=== PATIENT | male | born 1980 | race Caucasian/White ===

== ENCOUNTER 2017-09-09 00:38 | Emergency (ER) | payer MEDICAID ==
[~2017-09-09] VITALS: Ht 180.3 cm; Wt 77.3 kg
[2017-09-09 00:47] VITALS: BP 131/78
[2017-09-10] MEDS ORDERED: CLIN150C2 PO (18:34)
[2017-09-10] MEDS ORDERED: HYDR-565 PO (18:36)
== END 2017-09-09 01:47 | disposition left against medical advice (07) ==
LOC: ER 00:40
DX: K13.79 Other lesions of oral mucosa (principal); Z53.21 Procedure and treatment not carried out due to patient leaving prior to being seen by health care provider

== ENCOUNTER 2019-08-01 00:41 | Emergency (ER) | payer MEDICAID, OTHER ==
[~2019-08-01] VITALS: Ht 180.3 cm; Wt 170.0 kg
--- NOTE | 2019-08-01 00:53 | NUR ---
he removed the bandaide when he got to the room and it drained quick liquid moderate amount. He is right, there is a hole and the skin is excoriated around the wound and the whole dorsal part of the hand is swollen and red in color.
--- NOTE | 2019-08-01 01:38 | NUR ---
PATIENT'S HR IS 122 BPM, ADMITS TO METHAMPHETAMINE USE 2 HOURS [employer]
[2019-08-01] MEDS ORDERED: HYDROcodone/acetaminophen 10/325mg tab PO ONE (02:00)
[2019-08-01] MEDS ORDERED: piperacillin/tazo 3.375gm/50ml 50 ML IV ONE (02:00)
[2019-08-01] MEDS ORDERED: VANCOMYCIN 1gm/H2O 200ml PB 200 ML IV ONE (02:00)
[2019-08-01] MEDS ORDERED: ketorolac trometh. 30mg/ml inj. IV ONE (02:00)
[2019-08-01 02:32] LABS: BASOPHILS # (AUTO) 0.1 X10'3 (0-0.2); BASOPHILS % (AUTO) 0.7 % (0-1); EOSINOPHILS # (AUTO) 0.1 X10'3 (0-0.9); EOSINOPHILS % (AUTO) 0.9 % (0-6); HEMOGLOBIN 12.7 g/dl (14.0-17.9); LYMPHOCYTES % (AUTO) 20.8 % (21-51); MEAN CORPUSCULAR HEMOGLOBIN 31.4 PG (27.0-31.0); MEAN CORPUSCULAR HGB CONC 34.4 g/dL (33.0-36.5); MEAN CORPUSCULAR VOLUME 91.3 FL (78-98); MEAN PLATELET VOLUME 9.4 FL (7.4-10.4); MONOCYTES # (AUTO) 0.9 X10'3 (0-0.9); MONOCYTES % (AUTO) 9.5 % (2-12); NEUTROPHILS # (AUTO) 6.6 X10'3 (1.8-7.7); NEUTROPHILS % (AUTO) 68.1 % (42-75); PLATELET COUNT 228 X10'3 (140-440); RED BLOOD COUNT 4.05 X10'6 (4.70-6.10); RED CELL DISTRIBUTION WIDTH 13.4 % (11.5-14.5); WHITE BLOOD COUNT 9.6 X10'3 (4.5-11.0)
[2019-08-01 02:51] LABS: ALANINE AMINOTRANSFERASE 38 U/L (12-78); ALBUMIN 3.3 G/DL (3.4-5.0); ALKALINE PHOSPHATASE 93 IU/L (46-116); ANION GAP 5 (8-16); ASPARTATE AMINO TRANSFERASE 24 U/L (10-37); BILIRUBIN,TOTAL 0.3 MG/DL (0.1-1.0); BLOOD UREA NITROGEN 19 MG/DL (7-18); BUN/CREATININE RATIO 16.4 (5.4-32.0); CALCIUM 8.6 MG/DL (8.5-10.1); CHLORIDE 107 MMOL/L (99-107); CREATININE 1.16 MG/DL (0.60-1.10); GLUCOSE 122 MG/DL (70-104); POTASSIUM 3.7 MMOL/L (3.5-5.1); SODIUM 144 MMOL/L (135-145); TOTAL CARBON DIOXIDE 31.6 MMOL/L (24-32); TOTAL PROTEIN 6.5 G/DL (6.4-8.2); eGFR 70 ML/MIN
[2019-08-01] MEDS ORDERED: SULF1TAB49 PO (02:59)
[2019-08-01] MEDS ORDERED: HYDR-4353 PO (02:59)
[2019-08-01] MEDS ORDERED: AMOX-422 PO (02:59)
[2019-08-01] MEDS ORDERED: sulfamethoxazole/trimethoprim DS (800/160mg) tablet PO ONE (03:05)
[2019-08-01 04:38] VITALS: BP 114/66
== END 2019-08-01 04:43 | disposition home or self-care (01) ==
LOC: ER 00:42
DX: L02.511 Cutaneous abscess of right hand (principal); F12.90 Cannabis use, unspecified, uncomplicated
CPT/HCPCS: 36415; 80053; 85025; 96365; 96366; 96367; 96375; 99283; J1885; J2543; J3370